=== PATIENT | female | born 1970 | race Caucasian/White ===

== ENCOUNTER 2016-07-26 05:10 | Emergency (ER) | payer OTHER ==
[2016-07-26] MEDS ORDERED: SODIUM CHLORIDE 0.9% 1,000 ML IV ONE (05:25)
[2016-07-26] MEDS ORDERED: METOCLOPRAMIDE 10 MG/2 ML VIAL IVP STA (05:25)
[2016-07-26] MEDS ORDERED: diphenhydrAMINE INJ 50 MG/ML VIAL IVP STA ×2 (05:25→06:05)
[2016-07-26] MEDS ORDERED: ACETAMINOPHEN 325 MG TABLET PO STA (05:29)
[2016-07-26] MEDS ORDERED: ACETAMINOPHEN 325 MG TABLET PO ONE (05:34)
[2016-07-26] MEDS ORDERED: diphenhydrAMINE INJ 50 MG/ML VIAL ONE ×2 (05:34→06:05)
[2016-07-26] MEDS ORDERED: METOCLOPRAMIDE 10 MG/2 ML VIAL IVP ONE (05:34)
[2016-07-26] MEDS ORDERED: LORazepam 2 MG/ML SYRINGE IVP STA (06:05)
[2016-07-26] MEDS ORDERED: LORazepam 2 MG/ML SYRINGE ONE (06:06)
== END 2016-07-26 06:41 | disposition home or self-care (01) ==
DX: G43.009 Migraine without aura, not intractable, without status migrainosus (principal)
CPT/HCPCS: 96374; 96375; 99283; 99284; A9270; J2060

== ENCOUNTER 2016-09-02 11:21 | Outpatient (CLI) | payer OTHER ==
--- NOTE | 2016-09-02 14:46 | MRI Report ---
EXAM: MRI BRAIN WITHOUT CONTRAST EXAM DATE: 09/02/2016 12:12 PM. CLINICAL HISTORY: HEADACHES X 6 WEEKS. COMPARISON: None. TECHNIQUE: Multiplanar, multisequence T1-weighted and fluid-sensitive MR sequences of the brain were performed. Sequences optimized for routine evaluation. Other: None. IV Contrast: None. FINDINGS: Brain Volume: Normal for age. Parenchyma/Dura: No masses, infarcts, or hemorrhage. No significant white matter disease. No parenchy mal microhemorrhages. Ventricles/Cisterns: Normal. No hydrocephalus. Sinuses: Mild bilateral maxillary sinus mucosal thickening. Bones: Normal. Other: None. IMPRESSION: Overall unremarkable MRI examination of the brain. No evidence of acute intracranial abnormality, spe cifically no evidence of acute or subacute infarct, hemorrhage, mass, midline shift, or hydrocephalus . No significant white matter disease. [facility] Referring Provider Line: [phone] SITE ID: [id number]
== END 2016-09-02 11:22 | disposition home or self-care (01) ==
LOC: DI 11:21
PROVIDERS: ATTEND Registered Nurse Diabetes Educator
DX: R51 Headache (principal)
CPT/HCPCS: 70551

== ENCOUNTER 2017-05-13 00:56 | Emergency (ER) | payer OTHER ==
[2017-05-13] MEDS ORDERED: ONDANSETRON 4 MG/2 ML VIAL IVP STA (01:11)
[2017-05-13] MEDS ORDERED: LIDOCAINE VISCOUS 2% 15 ML UDC MM STA (01:11)
[2017-05-13] MEDS ORDERED: FAMOTIDINE 20 MG/2 ML VIAL IVP STA (01:11)
[2017-05-13] MEDS ORDERED: MAG HYDROX/AL HYDROX/SIMETH 30 ML UDC PO STA (01:11)
[2017-05-13 01:19] LABS: BASOPHILS # (AUTO) 0.1 10^3/uL (0.0-0.1); BASOPHILS % (AUTO) 0.7 %; EOSINOPHILS # (AUTO) 0.2 10^3/uL (0.0-0.7); HGB - HEMOGLOBIN 13.6 g/dL (12.0-16.0); LYMPHOCYTES # (AUTO) 2.3 10^3/uL (1.5-3.5); MEAN CORPUSCULAR HEMOGLOBIN 29.5 pg (27.0-31.0); MEAN CORPUSCULAR HGB CONC 35.3 g/dL (32.0-36.0); MEAN CORPUSCULAR VOLUME 83.5 fL (81.0-99.0); MEAN PLATELET VOLUME 8.6 fL (7.9-10.8); MONOCYTES # (AUTO) 0.6 10^3/uL (0.0-1.0); MONOCYTES % (AUTO) 8.4 %; NEUTROPHILS # (AUTO) 4.5 10^3/uL (1.5-6.6); NEUTROPHILS % (AUTO) 57.9 %; PLT - PLATELET COUNT 203 10^3/uL (130-450); RED BLOOD COUNT 4.63 10^6/uL (4.20-5.40); WHITE BLOOD COUNT 7.7 x10^3/uL (4.8-10.8)
[2017-05-13 01:32] LABS: ALBUMIN 4.4 g/dL (3.2-5.5); ALBUMIN/GLOBULIN RATIO 1.4 (1.0-2.2); BILIRUBIN,TOTAL 0.5 mg/dL (0.2-1.0); CALCIUM 8.9 mg/dL (8.5-10.3); CREATININE 0.7 mg/dL (0.4-1.0); TOTAL PROTEIN 7.6 g/dL (6.7-8.2)
[2017-05-13] MEDS ORDERED: POTASSIUM BICARB 25 MEQ TABLET PO STA (01:40)
--- NOTE | 2017-05-13 01:48 | XRAY Preliminary Report ---
Exam: XR CHEST 1 VIEW X-RAY IMPRESSION: Normal single view chest. [facility] SITE ID: [id number]
--- NOTE | 2017-05-13 01:48 | XRAY Report ---
EXAM: CHEST RADIOGRAPHY EXAM DATE: 05/13/2017 01:24 AM. CLINICAL HISTORY: Cough, chest pain. COMPARISON: 06/29/2007. TECHNIQUE: 1 view. FINDINGS: Lungs/Pleura: No focal opacities evident. No pleural effusion. No pneumothorax. Mediastinum: Within exam limitations, the cardiomediastinal contour is normal. Other: None. IMPRESSION: Normal single view chest. [facility] Referring Provider Line: [phone] SITE ID: [id number]
--- NOTE | 2017-05-13 01:50 | ED Physician Documentation ---
History of Present Illness - Stated complaint Stated Complaint: HEARTBURN - Chief complaint Chief Complaint: Cardiac - History obtained from History obtained from: Patient - History of Present Illness Timing: How many days ago (3) - Additonal information Additional information: Patient is a 46 year old female with a history of hiatal hernia, who is presenting to the emergency department for vomiting, indigestion, substernal pain. patient states a few days ago she wasn't feeling and had to fly down to [place] for a . While on the boat spreading the ashes patient had mulitple episodes of vomiting. patient states that she thought the symptoms would go away but she continued to have episodes of belching and heartburn after eating and lying down. Review of Systems Constitutional: denies: Fever, Chills Eyes: denies: Decreased vision Ears: denies: Ear pain Nose: denies: Rhinorrhea / runny nose, Congestion Throat: reports: Reviewed and negative Cardiac: reports: Chest pain / pressure. denies: Palpitations, Calf pain Respiratory: denies: Dyspnea, Cough, Wheezing GI: reports: Abdominal Pain, Nausea, Vomiting. 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 05/13/17 Ondansetron Odt [Zofran] 4 mg TL Q6H PRN #20 tablet 05/13/17 - Allergies Allergies/Adverse Reactions: Allergies Allergy/AdvReac Type Severity Reaction Status Date / Time naproxen AdvReac Unknown Verified 07/26/16 05:16 - Social History Does the pt smoke?: No Smoking Status: Never smoker Does the pt drink ETOH?: No Does the pt have substance abuse?: No - Immunizations Immunizations are current?: Yes - POLST Patient has POLST: No PD ED PE NORMAL - Vitals Vital signs reviewed: Yes - General General: Alert and oriented X 3, No acute distress, Well developed/nourished - HEENT HEENT: Atraumatic, PERRL - Neck Neck: Supple, no meningeal sign - Cardiac Cardiac: RRR, No murmur - Respiratory Respiratory: No respiratory distress, Clear bilaterally - Abdomen Abdomen: Soft, Non distended - Derm Derm: Warm and dry - Extremities Extremities: No deformity, No calf tenderness / cord - Neuro Neuro: Alert and oriented X 3, No motor deficit, Normal speech Eye Opening: Spontaneous Motor: Obeys Commands Verbal: Oriented GCS Score: 15 PD ED PE EXPANDED - Abdomen Abdomen: Tender to palpation, Epigastric. No: Rebound, Guarding Results - Vitals Vitals: Vital Signs - 24 hr 05/13/17 05/13/17 01:00 01:11 Temperature 36.1 C L Heart Rate 87 Respiratory 24 Rate Blood Pressure 154/89 H Blood Pressure 154/99 H [Right] O2 Saturation 100 Oxygen O2 Source Room air - EKG (time done) 0104 Rate: Rate (enter#) (87) Rhythm: NSR [place]: Normal Intervals: Normal [place] QRS: Normal Compare to prior EKG: Old EKG unavailable - Labs Labs: Laboratory Tests 05/13/17 05/13/17 05/13/17 01:10 01:10 01:10 WBC 7.7 RBC 4.63 Hgb 13.6 Hct 38.6 MCV 83.5 MCH 29.5 MCHC 35.3 RDW 13.0 Plt Count 203 MPV 8.6 Neut # 4.5 Lymph # 2.3 [place] # 0.6 Eos # 0.2 Baso # 0.1 Absolute Nucleated RBC 0.00 Nucleated RBC % 0.0 Sodium 135 Potassium 3.0 L Chloride 99 L Carbon Dioxide 23 Anion Gap 13.0 BUN 5 L Creatinine 0.7 Estimated GFR (MDRD) 90 Glucose 99 Calcium 8.9 Total Bilirubin 0.5 AST 20 ALT 14 Alkaline Phosphatase 51 Troponin I < 0.04 Total Protein 7.6 Albumin 4.4 Globulin 3.2 Albumin/Globulin Ratio 1.4 Lipase 51 - Rads (name of study) chest x-ray Radiology: Final report received (normal) PD MEDICAL DECISION MAKING - ED course Complexity details: reviewed old records, reviewed results, re-evaluated patient , considered differential, d/w patient ED course: patient was seen and examined at bedside. ekg was performed and was within normal limits. iv access was gained and labs were drawn. Patient was treated with pepcid, viscous lidocaine and maalox. Patient's other diagnostics showed a mild hypokalemia (which was replaced) but otherwise was normal. Patient reported a resolution of symptoms and was stable for discharge with outpatient follow up. Departure - Departure Disposition: 01 Home, Self Care Clinical Impression: Dyspepsia Condition: Good Instructions: ED GERD Follow-Up: Brijesh Quintana ARNP [Primary Care Provider] - As Needed Prescriptions: Esomeprazole Magnesium [Nexium] 20 mg PO DAILY #14 capsule. Ondansetron Odt [Zofran] 4 mg TL Q6H PRN #20 tablet PRN Reason: Nausea / Vomiting Comments: Your diagnostics today were within normal limits. You will be started on nexium again for the next two weeks. You can take maalox, pepto or tums for breakthrough pain. You should take the zofran as needed for nausea and vomiting. You should follow up with your doctor if your symptoms persist. You may return to the emergency department at any time for new, worsening or uncontrollable symptoms.
[2017-05-13 02:08] VITALS: BP 119/76
== END 2017-05-13 02:14 | disposition home or self-care (01) ==
LOC: ED 00:56
DX: R10.13 Epigastric pain (principal); E87.6 Hypokalemia; E03.9 Hypothyroidism, unspecified; K44.9 Diaphragmatic hernia without obstruction or gangrene
CPT/HCPCS: 36415; 71045; 80053; 83690; 84484; 85025; 93005; 96374; 99283; 99284; A9270

== ENCOUNTER 2018-02-13 01:00 | Emergency (ER) | payer OTHER ==
[2018-02-13 01:34] LABS: BASOPHILS # (AUTO) 0.1 10^3/uL (0.0-0.1); BASOPHILS % (AUTO) 0.8 %; EOSINOPHILS # (AUTO) 0.3 10^3/uL (0.0-0.7); EOSINOPHILS % (AUTO) 4.8 %; HGB - HEMOGLOBIN 13.8 g/dL (12.0-16.0); LYMPHOCYTES # (AUTO) 1.7 10^3/uL (1.5-3.5); LYMPHOCYTES % (AUTO) 26.2 %; MEAN CORPUSCULAR HEMOGLOBIN 30.1 pg (27.0-31.0); MEAN CORPUSCULAR HGB CONC 34.9 g/dL (32.0-36.0); MEAN CORPUSCULAR VOLUME 86.3 fL (81.0-99.0); MEAN PLATELET VOLUME 8.4 fL (7.9-10.8); MONOCYTES # (AUTO) 0.6 10^3/uL (0.0-1.0); MONOCYTES % (AUTO) 8.3 %; NEUTROPHILS % (AUTO) 59.9 %; PLT - PLATELET COUNT 177 10^3/uL (130-450); RED BLOOD COUNT 4.57 10^6/uL (4.20-5.40); RED CELL DISTRIBUTION WIDTH 13.2 % (12.0-15.0); WHITE BLOOD COUNT 6.7 x10^3/uL (4.8-10.8)
[2018-02-13 01:42] LABS: ALBUMIN 4.2 g/dL (3.2-5.5); ALBUMIN/GLOBULIN RATIO 1.4 (1.0-2.2); BILIRUBIN,TOTAL 0.9 mg/dL (0.2-1.0); CALCIUM 8.7 mg/dL (8.5-10.3); CREATININE 0.8 mg/dL (0.4-1.0); TOTAL PROTEIN 7.3 g/dL (6.7-8.2)
--- NOTE | 2018-02-13 03:00 | ED Physician Documentation ---
PD HPI CHEST PAIN - Stated complaint Stated Complaint: CHEST PX - Chief complaint Chief Complaint: Cardiac - History obtained from History obtained from: Patient - History of Present Illness Timing - onset: How many days ago (4-5) Timing - duration: Days Timing - details: Gradual onset, Waxing and waning Pain level now: 6 Quality: Other (burning) Location: Epigastric Radiation: Other (midline chest) Worsened by: Other (no exacerbating factors) Associated symptoms: No: Shortness of air, Diaphoresis, Nausea, Vomiting Similar symptoms before: Diagnosis ("I'm sure that it's my GERD" (per patient; feels similar to previous episodes)), Work up / diagnostics (w/u has included upper endoscopy which showed gastritis) Recently seen: Not recently seen - Additional information Additional information: epigastric and midline anterior chest pain x 4-5 days, feels similar to previous episodes which have been attributed to GERD. Inadequate relief with prilosec, zantac, and [place] Review of Systems Constitutional: denies: Fever, Chills, Sweats Cardiac: reports: Chest pain / pressure. denies: Palpitations, Pedal edema Respiratory: denies: Dyspnea, Cough GI: reports: Abdominal Pain. 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 05/13/17 Lidocaine HCl [Lidocaine HCl 15 ml PO TID PRN #100 ml 02/13/18 Viscous] Omeprazole 40 mg PO DAILY #30 capsule. 02/13/18 Phenobarb/Hyoscy/Atropine/Scop 1 - 2 tab PO TID PRN #20 tablet 02/13/18 [ Tablet] Sucralfate [Carafate] 1 gm PO ACHS #60 tablet 02/13/18 raNITIdine HCl [Ranitidine HCl] 300 mg PO QPM #30 tablet 02/13/18 - Allergies Allergies/Adverse Reactions: Allergies Allergy/AdvReac Type Severity Reaction Status Date / Time naproxen AdvReac Unknown Verified 02/13/18 01:06 - Social History Does the pt smoke?: No Smoking Status: Never smoker Does the pt drink ETOH?: No Does the pt have substance abuse?: No - Immunizations Immunizations are current?: Yes - POLST Patient has POLST: No PD ED PE NORMAL - Vitals Vital signs reviewed: Yes - General General: Alert and oriented X 3, No acute distress, Well developed/nourished - HEENT HEENT: Moist mucous membranes - Cardiac Cardiac: RRR, No murmur, No gallop, No rub - Respiratory Respiratory: No respiratory distress, Clear bilaterally - Abdomen Abdomen: Normal bowel sounds, Soft, Non tender, Non distended - Derm Derm: Normal color, Warm and dry - Extremities Extremities: No edema Results - Vitals Vitals: Vital Signs - 24 hr 02/13/18 06:11 Heart Rate 76 Respiratory 16 Rate Blood Pressure 111/73 O2 Saturation 98 Oxygen O2 Source Room air - EKG (time done) No standard instances Rate: Rate (enter#) (93) Rhythm: NSR [place]: Normal Intervals: Normal [place] QRS: Normal Ischemia: Normal ST segments - Labs Labs: Laboratory Tests 02/13/18 02/13/18 02/13/18 01:20 01:20 01:25 WBC 6.7 RBC 4.57 Hgb 13.8 Hct 39.4 MCV 86.3 MCH 30.1 MCHC 34.9 RDW 13.2 Plt Count 177 MPV 8.4 Neut # (Auto) 4.0 Lymph # (Auto) 1.7 [place] # (Auto) 0.6 Eos # (Auto) 0.3 Baso # (Auto) 0.1 Absolute Nucleated RBC 0.00 Nucleated RBC % 0.1 Sodium 132 L Potassium 4.0 Chloride 99 L Carbon Dioxide 24 Anion Gap 9.0 BUN 7 Creatinine 0.8 Estimated GFR (MDRD) 77 L Glucose 102 H Calcium 8.7 Total Bilirubin 0.9 AST 17 ALT 12 Alkaline Phosphatase 48 Troponin I < 0.04 Total Protein 7.3 Albumin 4.2 Globulin 3.1 Albumin/Globulin Ratio 1.4 Lipase 27 02/13/18 05:40 WBC RBC Hgb Hct MCV MCH MCHC RDW Plt Count MPV Neut # (Auto) Lymph # (Auto) [place] # (Auto) Eos # (Auto) Baso # (Auto) Absolute Nucleated RBC Nucleated RBC % Sodium Potassium Chloride Carbon Dioxide Anion Gap BUN Creatinine Estimated GFR (MDRD) Glucose Calcium Total Bilirubin AST ALT Alkaline Phosphatase Troponin I < 0.04 Total Protein Albumin Globulin Albumin/Globulin Ratio Lipase PD MEDICAL DECISION MAKING - ED course Complexity details: reviewed results, re-evaluated patient, considered differential, d/w patient Departure - Departure Disposition: Home, Self Care Clinical Impression: Gastroesophageal reflux disease Qualifiers: Esophagitis presence: esophagitis presence not specified Qualified Code(s): K21.9 - Gastro-esophageal reflux disease without esophagitis Chest pain Qualifiers: Chest pain type: unspecified Qualified Code(s): R07.9 - Chest pain, unspecified Condition: Good Instructions: ED Chest Pain Atypical Unkn Cause, ED GERD Follow-Up: Brijesh Quintana ARNP [Primary Care Provider] - (Call to arrange for next available appointment) Prescriptions: Lidocaine HCl [Lidocaine HCl Viscous] 15 ml PO TID PRN #100 ml PRN Reason: Abdominal Pain Omeprazole 40 mg PO DAILY #30 capsule. Phenobarb/Hyoscy/Atropine/Scop [ Tablet] 1 - 2 tab PO TID PRN #20 tablet PRN Reason: Abdominal Pain raNITIdine HCl [Ranitidine HCl] 300 mg PO QPM #30 tablet Sucralfate [Carafate] 1 gm PO ACHS #60 tablet Forms: Activity restrictions Discharge Date/Time: 02/13/18 06:19
[2018-02-13] MEDS ORDERED: LIDOCAINE VISCOUS 2% 15 ML UDC MM STA (03:16)
[2018-02-13] MEDS ORDERED: PHENobarb/HYOSCY/ATROPINE/SCOP 5 ML UDC PO STA (03:16)
[2018-02-13] MEDS ORDERED: MAG HYDROX/AL HYDROX/SIMETH 30 ML UDC PO STA (03:16)
[2018-02-13] MEDS ORDERED: SUCRALFATE 1 GM/10 ML UDC PO STA (03:26)
[2018-02-13] MEDS ORDERED: ALPRAZolam 0.25 MG TABLET PO STA (04:46)
[2018-02-13 06:13] VITALS: BP 111/73
== END 2018-02-13 06:19 | disposition home or self-care (01) ==
LOC: ED 01:00
DX: K21.9 Gastro-esophageal reflux disease without esophagitis (principal); R07.9 Chest pain, unspecified; E03.9 Hypothyroidism, unspecified
CPT/HCPCS: 36415; 80053; 83690; 84484; 85025; 93005; 99283; A9270

== ENCOUNTER 2018-10-25 22:38 | Emergency (ER) | payer OTHER ==
[2018-10-25 22:43] VITALS: BP 151/93
--- NOTE | 2018-10-25 23:23 | ED Physician Documentation ---
PD HPI SKIN - Stated complaint Stated Complaint: RED/HOT BUMP ON ARM - Chief complaint Chief Complaint: Wound - History obtained from History obtained from: Patient - History of Present Illness Timing - onset: How many weeks ago (1) Timing - details: Gradual onset Pain level now: 0 Location: RUE Quality / character: Painful, Burning, Discolored, Raised Associated symptoms: No: Fever Similar symptoms before: Has not had sx before Recently seen: Not recently seen - Additional information Additional information: "bit by something a week ago" (per patient); does not specifically recall a bite or sting, but noted a small red bump that was pruritic. 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: No Smoking Status: Never smoker Does the pt drink ETOH?: No Does the pt have substance abuse?: No - Immunizations Immunizations are current?: Yes - POLST Patient has POLST: No PD ED PE NORMAL - Vitals Vital signs reviewed: Yes - General General: Alert and oriented X 3, No acute distress, Well developed/nourished - Extremities Extremities: No edema PD ED PE EXPANDED - Extremities TESFAYE UE/Hands Visual: 1 - rash (sharply-marginated raised erythema with central red papule. no flu ctuance) Results - Vitals Vitals: Vital Signs - 24 hr 10/25/18 22:41 Temperature 37.1 C Heart Rate 86 Respiratory 16 Rate Blood Pressure 151/93 H O2 Saturation 99 Oxygen O2 Source Room air PD MEDICAL DECISION MAKING - ED course Complexity details: considered differential, d/w patient Departure - Departure Disposition: 01 Home, Self Care Clinical Impression: Cellulitis Condition: Good Instructions: ED Staph Infec Abx Tx Only Follow-Up: Brijesh Quintana ARNP [Primary Care Provider] - (3-4 days if not improving) Prescriptions: Doxycycline Hyclate 100 mg PO BID #19 capsule Discharge Date/Time: 10/25/18 23:47
[2018-10-25] MEDS ORDERED: DOXYCYCLINE 100 MG TABLET PO STA (23:39)
== END 2018-10-25 23:47 | disposition home or self-care (01) ==
LOC: ED 22:38
DX: L03.113 Cellulitis of right upper limb (principal)
CPT/HCPCS: 99282; 99283; A9270

== ENCOUNTER 2019-04-12 08:22 | Emergency (ER) | payer OTHER ==
[2019-04-12] MEDS ORDERED: SODIUM CHLORIDE 0.9% 1,000 ML IV ONE (08:49)
--- NOTE | 2019-04-12 08:52 | ED Physician Documentation ---
PD HPI ABD PAIN - Stated complaint Stated Complaint: ABD PX - Chief complaint Chief Complaint: Abd Pain - History obtained from History obtained from: Patient, Family - History of Present Illness Timing - onset: Today Timing - duration: Days (1) Timing - details: Gradual onset Pain level max: 8 Pain level now: 7 Quality: Aching, Pain Location: RLQ Radiation: No: Chest, , Lower back, Left flank, Left shoulder, Right flank, R ight shoulder, Upper back Improved by: Laying still Worsened by: Moving, Palpation Associated symptoms: No: Fever, Nausea, Vomiting, Hematemesis, Diarrhea, Constipation, Melena, Hematochezia, Dysuria, Hematuria Similar symptoms before: Other (ovarian cyst) Recently seen: Not recently seen Review of Systems Ten Systems: 10 systems reviewed and negative Constitutional: denies: Fever, Chills Throat: denies: Sore throat GI: denies: Vomiting, Diarrhea : reports: Hysterectomy. 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 - Present Medications Home Medications: Ambulatory Orders Medication Instructions Recorded Confirmed Levothyroxine Sodium [Levoxyl] 150 mcg PO DAILY 10/06/13 10/25/18 buPROPion [Wellbutrin Sr] 150 mg PO BID 07/26/16 10/25/18 raNITIdine HCl [Ranitidine HCl] 300 mg PO QPM #30 tablet 02/13/18 10/25/18 Doxycycline Hyclate 100 mg PO BID #19 capsule 10/25/18 raNITIdine [Zantac] 1 tab PO BID 10/25/18 10/25/18 Polyethylene Glycol 3350 [Miralax] 17 gm PO DAILY PRN #1 bottle 04/12/19 - Allergies Allergies/Adverse Reactions: Allergies Allergy/AdvReac Type Severity Reaction Status Date / Time naproxen AdvReac Unknown Verified 04/12/19 08:40 - Social History Does the pt smoke?: No Smoking Status: Never smoker Does the pt drink ETOH?: No Does the pt have substance abuse?: No - Immunizations Immunizations are current?: Yes - POLST Patient has POLST: No PD ED PE NORMAL - Vitals Vital signs reviewed: Yes - General General: Alert and oriented X 3, No acute distress - HEENT HEENT: Moist mucous membranes - Neck Neck: Supple, no meningeal sign - Cardiac Cardiac: RRR, Strong equal pulses - Respiratory Respiratory: No respiratory distress, Clear bilaterally - Abdomen Abdomen: Soft, Non distended, Other (TTP RLQ, + rovsing, neg obturator) - Derm Derm: Warm and dry - Extremities Extremities: Normal ROM s pain - Neuro Neuro: Alert and oriented X 3 - Psych Psych: Normal mood, Normal affect Results - Vitals Vitals: Vital Signs - 24 hr 04/12/19 04/12/19 08:35 10:49 Temperature 36.4 C L Heart Rate 76 63 Respiratory 18 12 Rate Blood Pressure 118/77 111/74 O2 Saturation 100 100 Oxygen O2 Source Room air - Labs Labs: Laboratory Tests 04/12/19 04/12/19 04/12/19 08:33 09:05 09:05 WBC 4.7 L RBC 4.73 Hgb 14.0 Hct 41.9 MCV 88.6 MCH 29.6 MCHC 33.4 RDW 12.1 Plt Count 175 MPV 10.2 Neut # (Auto) 3.0 Lymph # (Auto) 0.9 L [place] # (Auto) 0.5 Eos # (Auto) 0.3 Baso # (Auto) 0.0 Absolute Nucleated RBC 0.00 Nucleated RBC % 0.0 Sodium 139 Potassium 4.2 Chloride 104 Carbon Dioxide 27 Anion Gap 8.0 BUN 11 Creatinine 0.9 Estimated GFR (MDRD) 67 L Glucose 91 Calcium 8.8 Total Bilirubin 0.6 AST 57 H ALT 23 Alkaline Phosphatase 59 Total Protein 7.1 Albumin 3.9 Globulin 3.2 Albumin/Globulin Ratio 1.2 Lipase 32 Urine Color YELLOW Urine Clarity CLEAR Urine pH 7.0 Ur Specific [place] 1.015 Urine Protein NEGATIVE Urine Glucose (UA) NEGATIVE Urine Ketones NEGATIVE Urine Occult Blood NEGATIVE Urine Nitrite NEGATIVE Urine Bilirubin NEGATIVE Urine Urobilinogen 0.2 (NORMAL) Ur Leukocyte Esterase NEGATIVE Ur Microscopic Review NOT INDICATED Urine Culture Comments NOT INDICATED - Rads (name of study) CT abdomen pelvis Radiology: Prelim report reviewed (1. No convincing acute process identified to explain right lower quadrant ), EMP read contemporaneously, See rad report (1. No convincing acute process identified to explain right lower quadrant abdominal pain. Specifically, normal appearance of the appendix. 2. Small mildly complex right renal cyst, Bosniak category 2 versus 2F. Consider further characterization with renal protocol MRI. 3. Mild bilateral hydronephrosis with transition at the ureteropelvic junctions, nonspecific, may be congenital or related to volume status. No renal or ureteral calculi. ) PD MEDICAL DECISION MAKING - ED course Complexity details: reviewed results, re-evaluated patient, considered differential, d/w patient ED course: Patient presents to the emergency department with right lower quadrant abdominal pain. No leukocytosis. No fever. No vomiting. Appears to have significant constipation and bowel gas in this area. We will trial on MiraLAX. She is well-appearing, nontoxic. Patient counseled regarding signs and symptoms for which I believe and urgent re-evaluation would be necessary. Patient with good understanding of and agreement to plan and is comfortable going home at this time This document was made in part using voice recognition software. While efforts are made to proofread this document, sound alike and grammatical errors may occur. Departure - Departure Disposition: 01 Home, Self Care Clinical Impression: Abdominal pain Qualifiers: Abdominal location: right lower quadrant Qualified Code(s): R10.31 - Right lower quadrant pain Constipation Qualifiers: Constipation type: unspecified constipation type Qualified Code(s): K59.00 - Constipation, unspecified Condition: Good Instructions: ED Constipation Follow-Up: Brijesh Quintana ARNP [Primary Care Provider] - Within 1 week Prescriptions: Polyethylene Glycol 3350 [Miralax] 17 gm PO DAILY PRN #1 bottle PRN Reason: Constipation Comments: Drink plenty of water at home. Return if you worsen. This should improve with your next bowel movement. You can try increasing your fiber intake as well. Discharge Date/Time: 04/12/19 11:25
[2019-04-12 09:08] LABS: BILIRUBIN,URINE NEGATIVE (NEGATIVE); GLUCOSE, URINE (UA) NEGATIVE (NEGATIVE); KETONES,URINE (UA) NEGATIVE (NEGATIVE); LEUKOCYTE ESTERASE, URINE NEGATIVE (NEGATIVE); NITRITE,URINE NEGATIVE (NEGATIVE); OCCULT BLOOD,URINE NEGATIVE (NEGATIVE); PROTEIN,URINE NEGATIVE (NEGATIVE); UROBILINOGEN,URINE 0.2 (NORMAL) E.U./dL (NORMAL)
[2019-04-12 09:09] LABS: CLARITY,URINE CLEAR (CLEAR)
[2019-04-12] MEDS ORDERED: IOVERSOL 320 100 ML VIAL IVP ONE ×2 (09:12→13:10)
[2019-04-12 09:22] LABS: BASOPHILS % (AUTO) 0.6 %; EOSINOPHILS # (AUTO) 0.3 10^3/uL (0.0-0.7); EOSINOPHILS % (AUTO) 5.6 %; LYMPHOCYTES # (AUTO) 0.9 10^3/uL (1.5-3.5); MEAN CORPUSCULAR HEMOGLOBIN 29.6 pg (27.0-31.0); MEAN CORPUSCULAR HGB CONC 33.4 g/dL (32.0-36.0); MEAN CORPUSCULAR VOLUME 88.6 fL (81.0-99.0); MEAN PLATELET VOLUME 10.2 fL (7.9-10.8); MONOCYTES # (AUTO) 0.5 10^3/uL (0.0-1.0); MONOCYTES % (AUTO) 9.8 %; NEUTROPHILS % (AUTO) 64.6 %; PLT - PLATELET COUNT 175 10^3/uL (130-450); RED BLOOD COUNT 4.73 10^6/uL (4.20-5.40); RED CELL DISTRIBUTION WIDTH 12.1 % (12.0-15.0); WHITE BLOOD COUNT 4.7 x10^3/uL (4.8-10.8)
[2019-04-12 09:39] LABS: ALBUMIN 3.9 g/dL (3.2-5.5); ALBUMIN/GLOBULIN RATIO 1.2 (1.0-2.2); BILIRUBIN,TOTAL 0.6 mg/dL (0.2-1.0); CALCIUM 8.8 mg/dL (8.5-10.3); CREATININE 0.9 mg/dL (0.4-1.0); TOTAL PROTEIN 7.1 g/dL (6.7-8.2)
--- NOTE | 2019-04-12 10:32 | CT Report ---
Reason: RLQ Abdominal pain, appendicitis suspected Procedure Date: 04/12/2019 Accession Number: [id number] / [id number] Procedure: CT - Abdomen/Pelvis W CPT Code: Final Report FULL RESULT: EXAM: CT ABDOMEN AND PELVIS EXAM DATE: 04/12/2019 10:01 AM. CLINICAL HISTORY: Right lower quadrant abdominal pain, appendicitis suspected. COMPARISONS: None. TECHNIQUE: Routine helical CT imaging was performed through the abdomen and pelvis. IV contrast: OPTI 320 90ML. Enteric contrast: No. Reconstructions: Coronal and sagittal. In accordance with CT protocol optimization, one or more of the following dose reduction techniques were utilized for this exam: automated exposure control, adjustment of mA and/or KV based on patient size, or use of iterative reconstructive technique. FINDINGS: Lung Bases: Clear. Liver: Multiple small cysts, the largest 2.4 cm right hepatic lobe segment 8, and circumscribed subcentimeter hypoattenuating foci which are too small to characterize further. Gallbladder/Bile Ducts: Unremarkable. No visualized stones or biliary ductal dilatation. Spleen: Normal. Pancreas: Normal. Adrenal Glands: Normal. Kidneys and Ureters: 1.6 cm cortical cyst with thin internal septations in the lateral right upper pole (3/30). Mild bilateral hydronephrosis with transition at the ureteropelvic junctions. No renal or ureteral calculi. No hydroureter. No perinephric or periureteric fat stranding. Peritoneal Cavity/Bowel: Mobile cecum located in the midline anterior low abdomen. No evidence for bowel obstruction or acute inflammatory process. The appendix is normal. No free fluid, pneumoperitoneum, or adenopathy. Pelvic Organs: Post hysterectomy. The bladder is within normal limits. Vasculature: Normal. Bones: No significant abnormality. Other: None. IMPRESSION: 1. No convincing acute process identified to explain right lower quadrant abdominal pain. Specifically, normal appearance of the appendix. 2. Small mildly complex right renal cyst, Bosniak category 2 versus 2F. Consider further characterization with renal protocol MRI. 3. Mild bilateral hydronephrosis with transition at the ureteropelvic junctions, nonspecific, may be congenital or related to volume status. No renal or ureteral calculi. [facility]
[2019-04-12 10:50] VITALS: BP 111/74
== END 2019-04-12 11:25 | disposition home or self-care (01) ==
LOC: ED 08:22
DX: K59.00 Constipation, unspecified (principal); R10.31 Right lower quadrant pain; N28.1 Cyst of kidney, acquired; Z90.710 Acquired absence of both cervix and uterus
CPT/HCPCS: 36415; 74177; 80053; 81003; 83690; 85025; 96360; 96361; 99284; Q9967; 81001; 87086

== ENCOUNTER 2020-11-30 11:01 | Outpatient (CLI) | payer OTHER ==
--- NOTE | 2020-12-05 13:15 | Mammography Report ---
BILATERAL DIGITAL SCREENING MAMMOGRAM 3D/2D WITH AUGMENTATION: 11/30/2020 CLINICAL: Family history of breast cancer. Routine screening. Comparison is made to exams dated: 10/09/2018 mammogram and 04/06/2014 mammogram - [facility]. There are scattered fibroglandular elements in both breasts. Bilateral breast implants are stable and intact. No significant masses, calcifications, or other findings are seen in either breast. There has been no significant interval change. IMPRESSION: NEGATIVE There is no mammographic evidence of malignancy. A 1 year screening mammogram is recommended. This exam was interpreted at Station ID: [id number]. NOTE: For mammograms, a report in lay terms will be sent to the patient. Approximately 15% of breast malignancies will not be visualized mammographically. In the management of a palpable breast mass, a negative mammogram must not discourage biopsy of a clinically suspicious lesion. Electronically Signed By: Jessica carmona/reji:12/01/2020 15:42:32 ACR BI-RADS Category 1: Negative 3341F PARENCHYMAL PATTERN: (A) - The breast(s) demonstrate(s) scattered fibroglandular densities. BI-RADS CATEGORY: (1) - 1 RECOMMENDATION: (ANNUAL) - Recommend routine annual screening mammography. [id number] 1 year screening LATERALITY: (B)
== END 2020-11-30 11:02 | disposition home or self-care (01) ==
LOC: DI.N 11:01
DX: Z12.31 Encounter for screening mammogram for malignant neoplasm of breast (principal); Z80.3 Family history of malignant neoplasm of breast

== ENCOUNTER 2021-02-17 08:00 | Outpatient (CLI) | payer OTHER ==
[2021-02-17 14:34] LABS: BILIRUBIN,URINE NEGATIVE (NEGATIVE); GLUCOSE, URINE (UA) NEGATIVE (NEGATIVE); KETONES,URINE (UA) NEGATIVE (NEGATIVE); LEUKOCYTE ESTERASE, URINE NEGATIVE (NEGATIVE); NITRITE,URINE POSITIVE (NEGATIVE); OCCULT BLOOD,URINE TRACE-INTA (NEGATIVE); PH,URINE 6.5 PH (5.0-7.5); PROTEIN,URINE NEGATIVE (NEGATIVE); UROBILINOGEN,URINE 0.2 (NORMAL) E.U./dL (NORMAL)
[2021-02-17 14:37] LABS: CLARITY,URINE CLEAR (CLEAR)
[2021-02-17 14:42] LABS: BACTERIA,URINE Rare /HPF (None Seen); RBC,URINE None Seen /HPF (0-5); SQUAMOUS EPITHELIAL CELL,UR NONE SEEN (<= Few); WBC,URINE 0-3 /HPF (0-5)
== END 2021-02-17 23:59 | disposition home or self-care (01) ==
LOC: LAB.N 08:00
PROVIDERS: ATTEND Family Medicine
DX: R39.9 Unspecified symptoms and signs involving the genitourinary system (principal)
CPT/HCPCS: 81001; 81003; 87086

== ENCOUNTER 2021-05-31 18:59 | Outpatient (CLI) | payer OTHER ==
--- NOTE | 2021-06-01 08:23 | XRAY Report ---
PROCEDURE: Elbow 2 View RT INDICATIONS: PAIN IN RIGHT ELBOW TECHNIQUE: 2 views of the elbow were acquired. COMPARISON: None. FINDINGS: BONES/JOINT: No acute, displaced fracture or dislocation. No appreciable joint effusion. Trace olecra non enthesophyte. SOFT TISSUES: No focal abnormality. IMPRESSION: 1.No acute osseous abnormality of the elbow. Reviewed by: Jermaine Calderon MD on 06/01/2021 8:22 AM [facility] Approved by: Jermaine Calderon MD on 06/01/2021 8:22 AM PST Station ID: [id number]
== END 2021-05-31 23:59 | disposition home or self-care (01) ==
LOC: DI.N 18:59
PROVIDERS: ATTEND Nurse Practitioner
DX: M25.521 Pain in right elbow (principal)

== ENCOUNTER 2022-03-05 07:04 | Outpatient (CLI) | payer OTHER ==
--- NOTE | 2022-03-05 08:50 | MRI Report ---
PROCEDURE: SHOULDER WO - LT INDICATIONS: ADHESIVE CAPSULITIS OF LEFT SHOULDER TECHNIQUE: Noncontrast oblique coronal T2 fast spin echo with fat saturation, oblique sagittal T1 spin echo and T2 fast spin echo with fat saturation, axial T1 spin echo and T2 fast spin echo with fat saturation t hrough the shoulder. COMPARISON: None. FINDINGS: Image quality: Excellent. Rotator cuff: Mild diffuse T2 signal elevation within the supraspinatus and infraspinatus tendons at the humeral insertion site extending the muscular tendinous junctions, indicating tendinopathy. Super imposed low-grade bursal surface tearing of the posterior supraspinatus tendon at the humeral inserti on site as well as the mid infraspinatus tendon at the humeral insertion site, extending the muscular tendinous junctions. Subscapularis and teres minor tendons are intact. No rotator cuff atrophy. Bones and bursae: No bone marrow contusions or fractures. Moderate acromioclavicular joint degenerat ion. The acromion demonstrates conventional anatomy, without an os acromiale. No pathologic subacro mial/subdeltoid bursal fluid is present. Capsule and soft tissues: In the absence of intra-articular contrast, the labrum and glenohumeral li gaments appear intact. The long head of the biceps tendon demonstrates normal location and morpholog y. The rotator interval appears normal, without fibrosis. The coracohumeral ligament is normal in t hickness. IMPRESSION: 1. Supraspinatus and infraspinatus tendinopathy with superimposed low-grade partial thickness tears. No full-thickness rotator cuff tear. 2. Acromioclavicular joint osteoarthritis. Reviewed by: Luda Gomez MD on 03/05/2022 8:48 AM PST Approved by: Luda Gomez MD on 03/05/2022 8:48 AM PST Station ID: [id number]
== END 2022-03-05 07:05 | disposition home or self-care (01) ==
LOC: DI 07:04
PROVIDERS: ATTEND Nurse Practitioner Family
DX: M75.02 Adhesive capsulitis of left shoulder (principal); M75.112 Incomplete rotator cuff tear or rupture of left shoulder, not specified as traumatic; M19.012 Primary osteoarthritis, left shoulder

== ENCOUNTER 2022-05-22 09:19 | Outpatient (CLI) | payer OTHER ==
[2022-05-22] MEDS ORDERED: TRIAMCINOLONE 40 MG/ML VIAL ONE (09:25)
[2022-05-22] MEDS ORDERED: LIDOCAINE-MPF 1% 5 ML VIAL ONE (09:25)
[2022-05-22] MEDS ORDERED: BUPIVACAINE 0.5% PF 10 ML VIAL ONE (09:25)
[2022-05-22] MEDS ORDERED: BUPIVACAINE 0.5% PF 10 ML VIAL IM ONE (10:25)
[2022-05-22] MEDS ORDERED: LIDOCAINE-MPF 1% 5 ML VIAL TD ONE (10:26)
[2022-05-22] MEDS ORDERED: TRIAMCINOLONE 40 MG/ML VIAL IM ONE (10:27)
--- NOTE | 2022-05-22 17:17 | XRAY Report ---
PROCEDURE: Inj/Aspiration Major Joint INDICATIONS: LEFT ADHESIVE CAPSULITIS CONTRAST: 4 cc Omnipaque 240 FLUORO DOSAGE: 3.5 mGy FLUORO TIME: 0.3 TECHNIQUE: The indications, alternatives, benefits, risks, and complications of the procedure were explained to the patient. Written informed consent was obtained and placed in the chart. The patient was placed in an appropriate position on the fluoroscopy table, and a site was chosen for percutaneous access un jess fluoroscopic guidance. Local anesthetic was administered using a 1% lidocaine solution. A hypod ermic or spinal needle was then used to access the symptomatic joint. Intra-articular location of th e needle tip was confirmed by injecting a small amount of contrast, followed by steroid administratio n. The needle was then withdrawn, and a bandage applied to the puncture site. FINDINGS: Joint injected: Left shoulder Medications injected: 1 mL of 40 mg/mL Kenalog and 4 cc 0.5% Ropivacaine mixture. Complications: None. IMPRESSION: Successful fluoroscopically guided administration of steroid and anaesthetic solution into the left s houlder joint. Reviewed by: Jessica Andrews MD on 05/22/2022 5:16 PM PST Approved by: Jessica Andrews MD on 05/22/2022 5:16 PM PST Station ID: [id number]
== END 2022-05-22 09:20 | disposition home or self-care (01) ==
LOC: DI 09:19
PROVIDERS: ATTEND Physician Assistant Surgical
DX: M75.02 Adhesive capsulitis of left shoulder (principal)
CPT/HCPCS: 20610; 77002; Q9965

== ENCOUNTER 2022-10-23 17:23 | Outpatient (CLI) | payer OTHER ==
--- NOTE | 2022-10-24 14:30 | XRAY Report ---
PROCEDURE: Knee 3 View RT INDICATIONS: UNSPECIFIED INJ OF RT LEG TECHNIQUE: 3 views of the right knee(s) were acquired. COMPARISON: None. FINDINGS: Bones: No fractures or dislocations. No suspicious bony lesions. Soft tissues: Moderate knee joint effusion. No suspicious soft tissue calcifications or masses. IMPRESSION: No visualized acute fracture or dislocation. However, occult injury cannot be excluded. Recommend jhonatan rt interval imaging follow-up in 7-10 days as clinically indicated for additional evaluation. Reviewed by: Brianne Randolph MD on 10/24/2022 2:29 PM PDT Approved by: Brianne Randolph MD on 10/24/2022 2:29 PM PDT Station ID: [id number]
== END 2022-10-23 17:24 | disposition home or self-care (01) ==
LOC: DI 17:23
PROVIDERS: ATTEND Specialist
DX: S89.91XA Unspecified injury of right lower leg, initial encounter (principal)